=== PATIENT | male | born 1985 | race Caucasian/White ===

== ENCOUNTER 2024-07-20 07:35 | Emergency (ER) | payer MEDICAID ==
[~2024-07-20] VITALS: Ht 177.8 cm; Wt 85.0 kg
[2024-07-20 07:39] VITALS: O2SAT 98
[2024-07-20 07:40] VITALS: BP 177/104; PULSE 84; RESP 18; TEMP 37.1; O2SAT 99
[2024-07-20] MEDS: CEPHALEXIN 250MG CAPSULE PO ONE (08:45)
[2024-07-20] MEDS: IBUPROFEN 800MG TABLET PO ONE (08:45)
[2024-07-20] MEDS: SULFAMETHOXAZOLE/TRIMETHOPRIM 800/160MG TABLET PO ONE (08:45)
[2024-07-20] MEDS ORDERED: CEPH500T MT (08:47)
[2024-07-20] MEDS ORDERED: SULF1TAB48 MT (08:47)
[2024-07-20] MEDS ORDERED: NAPR-1495 MT (08:47)
[2024-07-20 08:52] LABS: HEMATOCRIT. 48.2 % (42.0-52.0); HEMOGLOBIN. 16.1 g/dL (14.0-18.0); MEAN CORPUSCULAR HEMOGLOBIN 28.5 pg (28.0-32.0); MEAN CORPUSCULAR HGB CONC 33.4 g/dL (31.0-37.0); MEAN CORPUSCULAR VOLUME 85.1 fL (80.0-94.0); MEAN PLATELET VOLUME 9.7 fl (7.4-10.4); PLATELET 143 x1000/uL (130-400); RED BLOOD CELL COUNT 5.66 mill/uL (4.7-6.1); RED CELL DISTRIBUTION WIDTH 14.1 % (11.6-14.6); WHITE BLOOD COUNT 18.3 x1000/uL (4.5-11.0)
[2024-07-20 09:05] LABS: DIFFERENTIAL COMMENT 1
[2024-07-20 09:07] LABS: CARBON DIOXIDE 25 mEq/L (21-32); CHLORIDE 97 mEq/L (98-107); SODIUM 134 mEq/L (136-145)
[2024-07-20 09:08] LABS: CALCIUM 8.6 mg/dL (8.7-10.4)
[2024-07-20 09:13] LABS: GLUCOSE 119 mg/dL (70-105); UREA NITROGEN BLOOD 13 mg/dL (9-23)
[2024-07-20 09:25] LABS: POTASSIUM 2.7 mEq/L (3.5-5.1)
[2024-07-20] MEDS: POTASSIUM CHLORIDE 20MEQ TABLET SR PO ONE (09:30)
[2024-07-20 09:54] LABS: PLATELET ESTIMATE NORMAL
[2024-07-20] MEDS: POTASSIUM CHLORIDE 20MEQ TABLET SR PO NR (10:08)
[2024-07-20] MEDS: CEPHALEXIN 250MG CAPSULE PO NR (10:08)
[2024-07-20] MEDS: SULFAMETHOXAZOLE/TRIMETHOPRIM 800/160MG TABLET PO NR (10:08)
== END 2024-07-20 10:31 | disposition home or self-care (01) ==
LOC: ER 07:35
DX: L03.115 Cellulitis of right lower limb (principal); Z79.1 Long term (current) use of non-steroidal anti-inflammatories (NSAID)
CPT/HCPCS: 36415; 80048; 85025; 99284